=== PATIENT | female | born 1960 | race Caucasian/White ===

== ENCOUNTER 2022-10-27 07:09 | Day surgery (SDC) | payer OTHER ==
[~2022-10-27] VITALS: Ht 167.6 cm; Wt 97.6 kg
[~2022-10-27 07:09] MED LIST: AMIT25; Aviane1 EACH; CELE200; CYCL10; DESVENLAFAXINE50 M2; Estradiol1 MG; HYDR-86; METCAR500; ORACONB
[2022-10-27 09:04] VITALS: BP 112/84
== END 2022-10-27 09:05 | disposition home or self-care (01) ==
LOC: ORSCSDS 07:09
PROVIDERS: Internal Medicine Gastroenterology
PROC: 0DJD8ZZ Inspection of Lower Intestinal Tract, Via Natural or Artificial Opening Endoscopic (ICD-10-PCS; principal; 2022-10-27 08:15)
DX: Z12.11 Encounter for screening for malignant neoplasm of colon (principal); Z79.899 Other long term (current) drug therapy
CPT/HCPCS: A9270; J2704; J7120